=== PATIENT | male | born 1975 | race American Indian/Alaskan Native ===

== ENCOUNTER 2016-12-15 14:44 | Emergency (ER) | payer OTHER ==
[2016-12-15 15:07] VITALS: BP 148/83; PULSE 82; TEMP 98.8; BMI 26.7
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
== END 2016-12-15 17:17 | disposition home or self-care (01) ==
LOC: JERFT 14:44
DX: M54.6 Pain in thoracic spine (principal); V43.52XA Car driver injured in collision with other type car in traffic accident, initial encounter; Y92.488 Other paved roadways as the place of occurrence of the external cause; Y93.89 Activity, other specified
CPT/HCPCS: 71101-TC; 99281-25